=== PATIENT | male | born 1990 | race Caucasian/White ===

== ENCOUNTER 2020-06-07 22:57 | Emergency (ER) | payer BC ==
[~2020-06-07] VITALS: Ht 177.8 cm; Wt 90.9 kg
[2020-06-07 23:10] VITALS: TEMP 98
[2020-06-08 00:56] VITALS: BP 120/77; PULSE 68
== END 2020-06-08 00:58 | disposition home or self-care (01) ==
LOC: COL.ER 22:57
DX: H57.11 Ocular pain, right eye (principal)